=== PATIENT | female | born 2005 | race Caucasian/White ===

== ENCOUNTER 2025-03-17 22:20 | Emergency (ER) | payer OTHER, SELFPAY ==
[2025-03-17 22:21] VITALS: BMI 23.0
[2025-03-17 23:22] VITALS: BP 108/74; PULSE 95; RESP 18; TEMP 37.4; O2SAT 97
--- NOTE | 2025-03-17 23:46 | EDNOTE_ITS ---
ED Skin Abcess FB-RME/HPI General Chief complaint: Ankle/Foot Injury Stated complaint: RT ANKLE PAIN Time Seen by Provider: 03/17/25 23:36 Arrival date/time: 03/17/25 22:20 19F with no significant PMH presents to ED with R ankle itching, swelling, and pain after she was stung by a bee several days ago. Patient has been taking Benadryl w/ minimal relief. Limitations: no limitations Related Data Previous Rx's ?Medication ?Instructions ?Recorded cephalexin 750 mg capsule 750 mg PO TID 7 days #21 cap s 03/18/25 Allergies Allergy/AdvReac Type Severity Reaction Status Date / Time No Known Allergies Allergy Verified 11/04/22 19:53 Review of Systems Review of Systems Systems Reviewed: All systems reviewed, normal except as documented Constitutional Constitutional: Reports system reviewed and no additional complaints, except as documented, Denies fever(s) and Denies headache(s) ENT Ears, Nose, Mouth, and Throat: Denies disequilibrium and Denies headache(s) Cardiovascular Cardiovascular: Reports system reviewed and no additional complaints, except as documented, Denies chest pain and Denies dyspnea Respiratory Respiratory: Reports system reviewed and no additional complaints, except as documented, Denies cough and Denies dyspnea Gastrointestinal Gastrointestinal: Reports system reviewed and no additional complaints, except as documented, Denies abdominal pain, Denies nausea and Denies vomiting Integumentary/Breasts Skin/Breast: Reports as per HPI, Reports pruritus, Reports rash and Reports skin pain Neurologic Neurologic: Reports system reviewed and no additional complaints, except as documented, Denies confusion, Denies disequilibrium and Denies headache(s) Psychiatric Psychiatric: Denies confusion Past Medical History Past Medical History CARDIAC: Negative Congestive Heart Failure RESPIRATORY: Negative Chronic Obstructive Pulmonary Disease (COPD) GENITOURINARY: Negative Renal Disease ENDOCRINE: Negative Diabetes Mellitus Type 1 or Diabetes Mellitus Type 2 Social History SMOKING STATUS: Never smoker ED Exam General Limitations: Present no limitations General appearance: Present alert and in no apparent distress Head Head exam: Present atraumatic Eye Eye exam: Present normal appearance, PERRL and EOMI ENT ENT exam: Present normal exam, normal oropharynx and mucous membranes moist Neck Neck exam: Present normal inspection, full ROM and trachea midline Chest Chest inspection: Present normal inspection and symmetric chest wall rise Respiratory Respiratory exam: Present normal lung sounds bilaterally Cardiovascular Cardiovascular exam: Present regular rate, normal rhythm and normal heart sounds Abdominal Exam Abdominal exam: Present soft and normal bowel sounds Extremities Exam Extremities exam: Present full ROM Expanded Lower Extremity Exam Ankle exam: Present full ROM (R), swelling and erythema Back Exam Back exam: Present normal inspection and full ROM Neurological Exam Neurological exam: Present alert, oriented X3 and CN II-XII intact Psychiatric Psychiatric exam: Present normal affect and normal mood Skin Skin exam: Present warm, dry, intact and normal color Course Quality Measures none Orders Category Date Time Status Dexamethasone Inj [Decadron Inj] Med 03/17/25 23:36 Discontinued 10 mg PO X1 ONE Vital Signs Vital signs: Vital Signs Temperature 99.3 F 03/17/25 23:22 Pulse Rate 95 03/17/25 23:22 Respiratory Rate 18 03/17/25 23:22 Blood Pressure 108/74 03/17/25 23:22 Pulse Oximetry (%) 97 03/17/25 23:22 Oxygen Delivery Method Room Air 03/17/25 23:22 O2 at 97% on RA and WNLs Skin / Abscess / Foreign Body MDM Narrative MDM Narrative:: 19F with no significant PMH presents to ED with R ankle itching, swelling, and pain after she was stung by a bee several days ago. Patient has been taking Benadryl w/ minimal relief. Physical exam reveals L ankle swelling and redness. Patient is afebrile, calm, and alert. Mom is concerned about infection since patient's possibly had body aches and fevers/chills. Redness looks more inflammatory from bee sting, rather than infection from cellulitis. But will send narrow ABX in case steroids to not im prove symptoms and there is a secondary cellulitis. Patient data External records reviewed:: [facility] previous records Clinical information provided by:: patient Social determinants that could affect healthcare access:: none Patient has the following chronic illnesses:: none How is presenting disease/condition affected by chronic disease/condition?: no chronic disease Evaluation data The following diagnostics were reviewed and interpreted by me:: other (specify) (none) Lab and/or radiology exams considered but not ordered:: not ordered Interpretation Summary: n/a Medications / Prescriptions Medications or Prescriptions considered but not ordered:: ordered Medication administrations:: Medication Administration History Discontinued Medications Dexamethasone Sodium Phosphate (Dexamethasone Sod Phos Inj 10 Mg/Ml Vial) 10 mg PO X1 ONE Stop: 03/17/25 23:37 Last Admin: 03/18/25 00:01 Dose: 10 mg Documented By: OA above Consultations Consultation(s) initiated? (list below): No Diagnosis Skin/Abscess Differential Diagnosis: abscess of skin or subcutaneous tissue, viral exanthem, dermatophytosis, urticaria, herpes zoster, allergic reaction to drug, cellulitis, eczema, insect bites, impetigo, contact dermatitis and other (bee sting) Most likely diagnosis given after review of the tests above:: bee sting Admission Indicated Admission indicated?: not indicated Admission Request Was there a request for admission?: No Disposition Plan Disposition Plan: Discharge Discharge Attestation Discharge Attestation: The patient and all family members were given an opportunity to ask questions and understood the discharge instructions. Discharge instructions specifically effects, indications for sooner follow up or return to the emergency department, and the expected course of current diagnosis. Patient condition: Stable Discharge Plan Plan Patient Disposition: HOME (Self Care) Discharge Disposition comment: Stable Prescriptions/Referrals Prescriptions/Med Rec: New cephalexin 750 mg capsule 750 mg PO TID 7 Days Qty: 21 0RF Problem List Clinical Impression: Bee sting Patient/Caregiver Discharge Instructions Education Materials: ED Insect Sting, Local Reaction Additional Instructions: Please follow-up with PCP within 24-48 hours and return immediately if symptoms worsen. Take OTC antihistamine as needed until symptoms resolve. Print Language: Lao Stand Alone Forms: Patient Portal Info Letter ASHLYN/XAVIER Supervising Physician TRANG Supervising Physician: Dr. Magdaleno
[2025-03-18] MEDS: DEXAMETHASONE SOD PHOS INJ 10 MG/ML VIAL PO (00:01)
== END 2025-03-18 00:16 | disposition home or self-care (01) ==
LOC: SERX 03-18 00:08
PROVIDERS: Emergency Provider Emergency Medicine; PCP Family Medicine
DX: T63.441A Toxic effect of venom of bees, accidental (unintentional), initial encounter (principal); M25.571 Pain in right ankle and joints of right foot
CPT/HCPCS: 99283; J1100